=== PATIENT | male | born 1990 | race Caucasian/White ===

== ENCOUNTER 2018-02-24 09:36 | Inpatient (IN) | payer MEDICAID ==
[2018-02-24] VITALS (14 sets, daily range): BP systolic 92–151; BP diastolic 47–68; BMI 22.3
[~2018-02-24] VITALS: Ht 170.2 cm; Wt 59.6 kg
--- NOTE | ~2018-02-24 | OP ---
PATIENT NAME: JUSTA HATCH MEDICAL RECORD: [id number] :89 LOCATION:D.CVI D.CV01 ADMISSION DATE:02/24/18 SURGEON: GUNNAR ROSALES MD DATE OF OPERATION: 03/11/2018 SURGEON: Gunnar Rosales MD ASSISTANTS: 1. Geovanny Hooks MD 2. JYOTI Stephens OPERATION PERFORMED: Excision of infected tricuspid valve anterior and posterior leaflets. PREOPERATIVE DIAGNOSIS: Tricuspid valve endocarditis. POSTOPERATIVE DIAGNOSIS: Tricuspid valve endocarditis. ANESTHESIA: General endotracheal anesthesia. ESTIMATED BLOOD LOSS: Total cardiopulmonary bypass with 1 platelet and 2 FFP. COMPLICATIONS: None. SPECIMENS: 1. Culture directly from pus in the endocarditis of the anterior leaflet. 2. Anterior and posterior leaflet with vegetations for permanent specimen. CONDITION: Stable. DISPOSITION: CV ICU. OPERATIVE FINDINGS: Transesophageal echocardiography confirmed vegetations involving the anterior and posterior leaflet with mitral regurgitation. After separation from cardiopulmonary bypass after excision and preservation of the posterior leaflet, there was [id number] tricuspid regurgitation. OPERATIVE INDICATION: Tricuspid endocarditis with MRSA. OPERATIVE SUMMARY IN DETAIL: The patient was brought to the operating suite. General anesthesia was obtained. The patient was prepped and draped. Median sternotomy incision was made. Subcutaneous tissue was divided by electrocautery. Sternum was divided with a saw. Pericardium was opened. Heparin was given. Superior vena cava was freed. Aorta was cannulated. Superior vena cava cannula was placed through a pursestring in the right atrial appendage. Inferior vena cava cannula was placed through a pursestring low in the right atrium. After activated clotting time was appropriately elevated, the patient was placed in cardiopulmonary bypass. The vena cavae were encircled. Crossclamp was placed. Cardioplegia was given through the catheter in the anterior ascending aorta, and after cardioplegia, the caval tapes were made tight and then the right atrium was opened. The vegetations as noted above were found. The vegetations extended down to the papillary muscle from the anterior leaflet. They were excised and liliane pus in the anterior leaflet vegetation was cultured separately. The septal leaflet was preserved. Thorough irrigation was undertaken. The atriotomy was closed. Caval tapes were removed. The patient OPERATIVE REPORT [id number] JUSTA HATCH resumed spontaneous rhythm. Atrial and ventricular pacing wires were placed. Both pleural cavities were evacuated, and with the patient in sinus rhythm, the patient was weaned from cardiopulmonary bypass and was stable. The patient was decannulated. Aortic cannulation site was oversewn. Protamine was given. Thorough irrigation was undertaken. The patient was stable and pericardial fat was loosely reapproximated. Sternum was closed with wires. Fascia was closed. Subcutaneous tissue was closed. Skin was closed. Dermabond was placed. Needle and sponge counts were correct and the patient was taken to the ICU in stable condition. TRANSINT:[id number] Voice Confirmation ID: [id number] DOCUMENT ID: [id number] GUNNAR ROSALES MD at 0956 CC: LC MIRELES DO, Tanner BRANDON and RAAD MILLS [id number] DICTATION DATE: 03/11/18 1441 GROUND WATER TECHNICIAN: 03/11/18 1502 ADM IN [facility] [address] [id number]
--- NOTE | ~2018-02-24 | EC ---
PATIENT:JUSTA HATCH DATE OF SERVICE: 02/24/18 SEX: M MEDICAL RECORD: [id number] DATE OF : [birth year] LOCATION:[facility] AGE OF PATIENT: 27 ADMISSION DATE: 02/24/18 REFERRING PHYSICIAN: INTERPRETING PHYSICIAN: CHRIS CARTAGENA MD ECHOCARDIOGRAM REPORT ECHO CHARGES 7 ECHO w/CONTRAST Date: 03/03/18 CLINICAL DIAGNOSIS: CONTRAST ECHO TO ASSESS FOR SEPTAL DEFECT ECHOCARDIOGRAPHIC MEASUREMENTS (adult normal given) AC root (d.<3.7cm) 3.0 cm LV Septum d (<1.2 cm> 0.9 cm Valve Excursion 2.3 cm LV Septum (systole) 1.5 cm Left Atria (s.<4.0cm> 3.6 cm LVPW d(<1.2cm) 1.1 cm RV (d.<2.3cm) 2.3 cm LVPW (sytole) 1.9 cm LV diastole(<5.6CM) 5.6 cm MV E-F(>70mm/sec) cm LV systole 3.6 cm LVOT Diameter 1.9 cm MV exc.(>10mm) cm Est.ejection fraction (50-75%) % DOPPLER: LVIT cm/sec A 125 cm/sec E 90.0 cm/sec LA cm/sec RVSP 39.0 mmHg LVOT 111 cm/sec AOP1/2T m/s Asc. Ao 154 cm/sec RVOT 82.0 cm/sec RA cm/sec PA 136 cm/sec AV Gradient Peak 9.5 mmHg AV Mean 4.3 mmHg AV Area 1.7 cm MV Gradient Peak 3.8 mmHg MV Mean 2.0 mmHg MV Area cm COMMENTS: LARGE VEG ON TV Bread Dough Mixer: 2 ADAM JENSEN Set Up And Charger: 4 Dr. Cartagena TAPE# PACS Pericardial Effusion N DATE OF SERVICE: This is a contrast enhanced echocardiogram reportedly looking for evidence of a ventricular septal defect or an atrial septal defect. CONCLUSION: The patient has a dilated right ventricle. There is a large tricuspid valve vegetation. There does not appear to be any ventricular defect or atrial septal defect. TRANSINT:[id number] Voice Confirmation ID: [id number] DOCUMENT ID: [id number] ECHOCARDIOGRAM REPORT [id number] JUSTA HATCH CHRIS CARTAGENA MD at 0748 CC: [id number] DICTATION DATE: 03/03/18 1527 STATION GATEMAN: 03/03/18 1628 ADM IN [facility] [address] [place] [address]
--- NOTE | ~2018-02-24 | EC ---
PATIENT:JUSTA HATCH DATE OF SERVICE: 02/24/18 SEX: M MEDICAL RECORD: [id number] DATE OF : [birth year] LOCATION:[facility] AGE OF PATIENT: 27 ADMISSION DATE: 02/24/18 REFERRING PHYSICIAN: INTERPRETING PHYSICIAN: CHRIS CARTAGENA MD ECHOCARDIOGRAM REPORT ECHO CHARGES 5 ECHO LIMITED Date: 03/11/18 CLINICAL DIAGNOSIS: REASESS VEGATATION ON TRICUSPID VALVE ECHOCARDIOGRAPHIC MEASUREMENTS (adult normal given) AC root (d.<3.7cm) 3.0 cm LV Septum d (<1.2 cm> 0.9 cm Valve Excursion 2.3 cm LV Septum (systole) 1.5 cm Left Atria (s.<4.0cm> 3.6 cm LVPW d(<1.2cm) 1.1 cm RV (d.<2.3cm) 2.3 cm LVPW (sytole) 1.9 cm LV diastole(<5.6CM) 5.6 cm MV E-F(>70mm/sec) cm LV systole 3.6 cm LVOT Diameter 1.9 cm MV exc.(>10mm) cm Est.ejection fraction (50-75%) % DOPPLER: LVIT cm/sec A 125 cm/sec E 90.0 cm/sec LA cm/sec RVSP 39.0 mmHg LVOT 111 cm/sec AOP1/2T m/s Asc. Ao 154 cm/sec RVOT 82.0 cm/sec RA cm/sec PA 136 cm/sec AV Gradient Peak 9.5 mmHg AV Mean 4.3 mmHg AV Area 1.7 cm MV Gradient Peak 3.8 mmHg MV Mean 2.0 mmHg MV Area cm COMMENTS: ROSALES PATIENT Organizational Development Consultant: 2 ADAM JENSEN Latcher: 3 Dr. Rodriguez TAPE# PACS Pericardial Effusion N DATE OF SERVICE: 03/14/2018 PROCEDURE: Intraoperative transesophageal echocardiogram. FINDINGS: Echocardiogram demonstrated a large vegetation on the tricuspid valve measuring 2.4 cm, ejection fraction 65%. The patient has a dilated right ventricular heart structure. The area of the vegetation is 1.3 cm-squared and had severe tricuspid regurgitation associated with it. TRANSINT:[id number] Voice Confirmation ID: [id number] DOCUMENT ID: [id number] ECHOCARDIOGRAM REPORT [id number] JUSTA HATCH CHRIS CARTAGENA MD at 0738 CC: [id number] DICTATION DATE: 03/14/18907 SENIOR TEST ENGINEER: 03/14/18914 ADM IN [place] [id number] [place] [id number]
--- NOTE | ~2018-02-24 | CN ---
PATIENT NAME:JUSTA HATCH MEDICAL RECORD: [id number] : [birth year] LOCATION:[facility]2311 ADMIT DATE: 02/24/18 ACCOUNT: [id number] CONSULTING PHYSICIAN: CYRUS RINCON MD REFERRING PHYSICIAN: LC MIRELES DO DATE OF CONSULTATION: 02/24/2018 CARDIOLOGY CONSULTATION DIAGNOSES: 1. Sinus tachycardia. 2. Pneumonia. 3. Hyponatremia. 4. Hypokalemia. HISTORY OF PRESENT ILLNESS: This is a gentleman who presents with general malaise, shortness of breath, found to have multilobar pneumonia, is also found to have a sinus tachycardia initially at 120, now at 160. PHYSICAL EXAMINATION: GENERAL APPEARANCE: Well-nourished, well-developed, appears stated age. Level of distress, comfortable. PSYCHIATRIC: Mental status, alert, normal affect. Orientation, oriented to time, place and person. EYES: Lids and conjunctiva, noninjected. No discharge, no pallor. ENT: Lips, teeth, gums, normal dentition. Oropharynx, no cyanosis, no pallor. NECK: Carotid arteries, bilateral normal upstroke, no bruits, no thrills. JUGULAR VEINS: No jugular venous pressure or distention. CERVICAL LYMPH NODES: Nontender, nonenlarged. THYROID: Not enlarged. Nontender. No nodules. LUNGS: Respiratory effort, unlabored. CHEST: Normal curvature. No thoracic deformity. No chest wall tenderness. Percussion, resonant. Auscultation, clear. No wheezes, no rales, no rhonchi. CARDIOVASCULAR: Precordial exam, nondisplaced. No heaves or pericardial thrills. Rate and rhythm, regular. Heart sounds, normal S1, normal S2. No S3, no gallop, no rub. Systolic murmur, not heard. Diastolic murmur, not heard. EXTREMITIES: No cyanosis, no edema. Peripheral pulses, full and equal in all extremities, except as noted. No bruits appreciated. ABDOMEN: Soft, nondistended. Normal aorta. No bruit. Nontender. No masses. Liver, nontender, no hepatomegaly. Spleen, nontender, no splenomegaly. MUSCULOSKELETAL: No joint tenderness. No joint swelling. No erythema. NEUROLOGICAL: Normal gait, normal strength, normal tone. SKIN: Warm and dry. REVIEW OF SYSTEMS: The patient reports easy bruising but reports no swollen glands. The patient reports no fever, no night sweats, no significant weight gain, no significant weight loss. No significant exercise tolerance. The patient reports no dry eyes, no irritation, no vision change. Patient reports no difficulty hearing and no ear pain. Patient reports no frequent nose bleeds or nose and sinus problems. Patient reports on arm pain on exertion. No shortness of breath while lying down. No history of heart murmur. Patient reports no cough, no wheezing or coughing up blood. Patient reports no abdominal pain, no vomiting. Normal appetite. No diarrhea and not vomiting blood. No nausea and no constipation. Patient reports no incontinence. No difficulty urinating. No hematuria. No increased frequency. Patient reports CONSULT REPORT [id number] JUSTA HATCH no muscle aches. No weakness, no arthralgias, no back pain. No swelling of the extremities. Patient reports no abnormal mole, no jaundice, no rashes. Reports no loss of consciousness. No weakness and no numbness. No seizures, dizziness, or headaches. The patient reports no depression, no sleep disturbance, feeling safe in a relationship and no alcohol abuse. Patient reports on fatigue. Reports no runny nose or sinus pressure. No itching, no hives, and no frequent sneezing. OVERALL IMPRESSION: Sinus tachycardia. This will respond to Lopressor. Currently, his systolic blood pressure is in the 120 range. We will give 10 mg IV Lopressor. We will get an echocardiogram to make sure he does not have concomitant endocarditis as well. Other than that, no other cardiac workup or treatment is necessary. TRANSINT:[id number] Voice Confirmation ID: [id number] DOCUMENT ID: [id number] CYRUS RINCON MD at 1843 CC: [id number] DICTATION DATE: 02/24/18 170 PRINCIPLE SOFTWARE ENGINEER: 02/24/181941 ADM IN [facility] [address] [place] [address]
--- NOTE | ~2018-02-24 | EC ---
PATIENT:JUSTA HATCH DATE OF SERVICE: 02/24/18 SEX: M MEDICAL RECORD: [id number] DATE OF : [birth year] LOC[facility] AGE OF PATIENT: 27 ADMISSION DATE: 02/24/18 REFERRING PHYSICIAN: INTERPRETING PHYSICIAN: RAAD MILLS MD ECHOCARDIOGRAM REPORT ECHO CHARGES 5 ECHO LIMITED Date: 03/08/18 CLINICAL DIAGNOSIS: REASESS VEGATATION ON TRICUSPID VALVE ECHOCARDIOGRAPHIC MEASUREMENTS (adult normal given) AC root (d.<3.7cm) 3.0 cm LV Septum d (<1.2 cm> 0.9 cm Valve Excursion 2.3 cm LV Septum (systole) 1.5 cm Left Atria (s.<4.0cm> 3.6 cm LVPW d(<1.2cm) 1.1 cm RV (d.<2.3cm) 2.3 cm LVPW (sytole) 1.9 cm LV diastole(<5.6CM) 5.6 cm MV E-F(>70mm/sec) cm LV systole 3.6 cm LVOT Diameter 1.9 cm MV exc.(>10mm) cm Est.ejection fraction (50-75%) % DOPPLER: LVIT cm/sec A 125 cm/sec E 90.0 cm/sec LA cm/sec RVSP 39.0 mmHg LVOT 111 cm/sec AOP1/2T m/s Asc. Ao 154 cm/sec RVOT 82.0 cm/sec RA cm/sec PA 136 cm/sec AV Gradient Peak 9.5 mmHg AV Mean 4.3 mmHg AV Area 1.7 cm MV Gradient Peak 3.8 mmHg MV Mean 2.0 mmHg MV Area cm COMMENTS: LARGE VEG ON TV Horizontal Drill Operator: 2 ADAM JENSEN Rest Room Maid: 3 Dr. Rodriguez TAPE# PACS Pericardial Effusion N DATE OF SERVICE: This is a limited study, 2-D. No LVH. LV internal dimensions are normal. LV is hyperdynamic. EF is greater than 60%. Aortic valve is tricuspid with adequate valve excursion. Left atrium grossly appears normal. Mitral valve shows no prolapse. Trivial MR. Right-sided chamber is normal. Trivial TR. TRANSINT:[id number] Voice Confirmation ID: [id number] DOCUMENT ID: [id number] ECHOCARDIOGRAM REPORT [id number] HATCHJUSTA DAVIS GREGORY A MD at 0843 CC: [id number] DICTATION DATE: 03/08/18 1238 DICE TABLE PERSON: 03/08/18 1304 ADM IN [facility] [address] [id number]
--- NOTE | ~2018-02-24 | EC ---
PATIENT:JUSTA HATCH DATE OF SERVICE: 02/24/18 SEX: M MEDICAL RECORD: [id number] DATE OF : [birth year] LOCATION:[facility] AGE OF PATIENT: 27 ADMISSION DATE: 02/24/18 REFERRING PHYSICIAN: INTERPRETING PHYSICIAN: CYRUS PHELAN MD ECHOCARDIOGRAM REPORT ECHO CHARGES 4 ECHO COMPLETE Date: 02/25 CLINICAL DIAGNOSIS: TACHYCARDIA - R/O ENDOCARDITIS ECHOCARDIOGRAPHIC MEASUREMENTS (adult normal given) AC root (d.<3.7cm) 3.0 cm LV Septum d (<1.2 cm> 0.9 cm Valve Excursion 2.3 cm LV Septum (systole) 1.5 cm Left Atria (s.<4.0cm> 3.6 cm LVPW d(<1.2cm) 1.1 cm RV (d.<2.3cm) 2.3 cm LVPW (sytole) 1.9 cm LV diastole(<5.6CM) 5.6 cm MV E-F(>70mm/sec) cm LV systole 3.6 cm LVOT Diameter 1.9 cm MV exc.(>10mm) cm Est.ejection fraction (50-75%) % DOPPLER: LVIT cm/sec A 125 cm/sec E 90.0 cm/sec LA cm/sec RVSP 39.0 mmHg LVOT 111 cm/sec AOP1/2T m/s Asc. Ao 154 cm/sec RVOT 82.0 cm/sec RA cm/sec PA 136 cm/sec AV Gradient Peak 9.5 mmHg AV Mean 4.3 mmHg AV Area 1.7 cm MV Gradient Peak 3.8 mmHg MV Mean 2.0 mmHg MV Area cm COMMENTS: Feed Project Engineer: Georgina SARKAROE Certified Court/Medical Interpreter: 1 Dr. Phelan TAPE# PACS Pericardial Effusion N DATE OF SERVICE: 02/25/2018 PROCEDURE: Echocardiogram. FINDINGS: 1. Left ventricular chamber size is within normal limits. Left ventricular systolic function is normal. Overall ejection fraction estimated at 55%. 2. Left atrium, right atrium, and right ventricle chamber sizes are within normal limits. 3. Valvular structures: There is a large vegetation compatible with ECHOCARDIOGRAM REPORT [id number] JUSTA HATCH endocarditis on the tricuspid valve. The remaining valvular structures have normal structure and motion. 4. Doppler interrogation reveals only trace mitral regurgitation, trace tricuspid regurgitation, no other valvular insufficiency or stenosis. Pulmonary systolic pressure is normal estimated 39 mmHg. 5. No evidence of pericardial effusion or left ventricular thrombus. TRANSINT:[id number] Voice Confirmation ID: [id number] DOCUMENT ID: [id number] CYRUS PHELAN MD at 1843 CC: LC MIRELES DO [id number] DICTATION DATE: 02/25/18 1206 HOT PATCHER: 02/25/18 1211 ADM IN [id number] [place] [address]
--- NOTE | ~2018-02-24 | EC ---
PATIENT:JUSTA HATCH DATE OF SERVICE: 02/24/18 SEX: M MEDICAL RECORD: [id number] DATE OF : 91 LOCATION:[place] [address] AGE OF PATIENT: 27 ADMISSION DATE: 02/24/18 REFERRING PHYSICIAN: INTERPRETING PHYSICIAN: RAAD MILLS MD ECHOCARDIOGRAM REPORT ECHO CHARGES 5 ECHO LIMITED Date: 03/08/18 CLINICAL DIAGNOSIS: REASESS VEGATATION ON TRICUSPID VALVE ECHOCARDIOGRAPHIC MEASUREMENTS (adult normal given) AC root (d.<3.7cm) 3.0 cm LV Septum d (<1.2 cm> 0.9 cm Valve Excursion 2.3 cm LV Septum (systole) 1.5 cm Left Atria (s.<4.0cm> 3.6 cm LVPW d(<1.2cm) 1.1 cm RV (d.<2.3cm) 2.3 cm LVPW (sytole) 1.9 cm LV diastole(<5.6CM) 5.6 cm MV E-F(>70mm/sec) cm LV systole 3.6 cm LVOT Diameter 1.9 cm MV exc.(>10mm) cm Est.ejection fraction (50-75%) % DOPPLER: LVIT cm/sec A 125 cm/sec E 90.0 cm/sec LA cm/sec RVSP 39.0 mmHg LVOT 111 cm/sec AOP1/2T m/s Asc. Ao 154 cm/sec RVOT 82.0 cm/sec RA cm/sec PA 136 cm/sec AV Gradient Peak 9.5 mmHg AV Mean 4.3 mmHg AV Area 1.7 cm MV Gradient Peak 3.8 mmHg MV Mean 2.0 mmHg MV Area cm COMMENTS: LARGE VEG ON TV Chemical Plant Manager: 2 ADAM JENSEN Ore Buyer: 3 Dr. Rodriguez TAPE# PACS Pericardial Effusion N DATE OF SERVICE: Transesophageal Note DESCRIPTION OF PROCEDURE: After general sedation via TIVA anesthesia, transesophageal Omniplane probe WAS placed in the distal esophagus and proximal stomach without difficulty. FINDINGS: As follows: No LVH. LV internal dimension is normal. Wall motion is normal. EF is hyperdynamic. EF 60% or better. Aortic valve is tricuspid ECHOCARDIOGRAM REPORT [id number] JUSTA HATCH with good valve excursion. No evidence of vegetation. Left atrium appears with normal dimensions. Left atrial appendage is well visualized without evidence of thrombus and good contractility. Mitral valve is well visualized with no evidence of vegetation, normal-appearing valve with trivial MR. Right-sided chambers: Right atrium is obviously dilated. RV internal dimensions appear normal with normal contractility. Huge vegetation is seen involving both the entire tricuspid valve apparatus with severe TR with color flow imaging. At the end of the procedure, the Omniplane probe was turned posteriorly. This showed no atherosclerotic debris in the descending aorta. TRANSINT:[id number] Voice Confirmation ID: [id number] DOCUMENT ID: [id number] RAAD MILLS MD at 0843 CC: [id number] DICTATION DATE: 03/08/18 1229 COAT FITTER: 03/08/18 1248 ADM IN [address] [id number] [place] [address]
[2018-02-24 10:40] LABS: UDS - AMPHET POSITIVE QUAL (NEGATIVE); UDS - BARB NEGATIVE QUAL (NEGATIVE); UDS - BENZO NEGATIVE QUAL (NEGATIVE); UDS - COCAINE NEGATIVE QUAL (NEGATIVE); UDS - OPIATE POSITIVE QUAL (NEGATIVE); UDS - PCP NEGATIVE QUAL (NEGATIVE); UDS - THC NEGATIVE QUAL (NEGATIVE)
[2018-02-24 10:42] LABS: BASOPHILS 0.2 % (0-2); EOSINOPHILS 0 % (0-7); HEMATOCRIT 39.4 % (42.0-54.0); HEMOGLOBIN 14.5 g/dL (13.5-17.5); IMMATURE GRANULOCYTES 6.6 % (0-5); MCH 31.5 pg (26.0-34.0); MCHC 36.8 g/dL (31.0-37.0); MCV 85.5 fL (80.0-100.0); MEAN PLATELET VOLUME 12.3 fL (7.4-10.4); MONOCYTES 7.9 % (2-11); NEUTROPHILS 80.3 % (40-80); RBC 4.61 10x6/uL (4.20-6.10); WBC 12.6 10x3/uL (4.8-10.8)
[2018-02-24 10:50] LABS: PLATELET COUNT 41 10x3/uL (130-400)
[2018-02-24 10:55] LABS: ALBUMIN 2.6 g/dL (3.4-5.0); ALKALINE PHOSPHATASE 153 U/L (46-116); ALT (SGPT) 108 U/L (10-68); BILIRUBIN - TOTAL 6.83 mg/dL (0.2-1.3); CALC OSMOLALITY 255 mosm/kg (275-300); CALCIUM 8.4 mg/dL (8.5-10.1); CARBON DIOXIDE 26.8 mmol/L (21.0-32.0); CHLORIDE - SERUM 91 mmol/L (98-107); CREATININE - SERUM 1.1 mg/dL (0.6-1.3); GLUCOSE 108 mg/dL (74-106); POTASSIUM - SERUM 3.3 mmol/L (3.5-5.1); SODIUM 127 mmol/L (136-145); UREA NITROGEN 12 mg/dL (7-18); eGFR NON AFRICAN AMERICAN 86 mL/min (90-120)
[2018-02-24 11:03] LABS: APPEARANCE CLOUDY (CLEAR); BILIRUBIN 3+ (NEGATIVE); COLOR AMBER (YELLOW); GLUCOSE NEGATIVE (NEGATIVE); KETONE NEGATIVE (NEGATIVE); NITRITE NEGATIVE (NEGATIVE); PROTEIN 2+ mg/dL (NEGATIVE); SPECIFIC GRAVITY 1.015 (1.005-1.020); WHITE CELLS - URINE 0-5 /hpf (0-5)
[2018-02-24 11:04] LABS: BACTERIA MODERATE /hpf (NONE SEEN); EPITHELIAL CELLS 0-5 /hpf (0-5); MUCUS >1+ /lpf (NONE SEEN); RED CELLS - URINE OCC /hpf (0-5)
[2018-02-24 11:10] LABS: CKMB 0.8 U/L (0.0-3.6); CREATINE KINASE 63 UL (21-232); TROPONIN-I < 0.017 ng/mL (0.000-0.060)
[2018-02-24 11:12] LABS: PLATELET ESTIMATE DECREASED
[2018-02-24 18:55] LABS: APTT 31.3 SECONDS (22.8-39.4); INR 1.4 (0.85-1.17); PROTIME 16.7 SECONDS (11.6-15.0)
[2018-02-25] VITALS (20 sets, daily range): BP systolic 93–140; BP diastolic 53–93; Ht 170.2 cm; Wt 59.6 kg
[2018-02-25 03:08] LABS: BASOPHILS 0.1 % (0-2); EOSINOPHILS 0.2 % (0-7); HEMATOCRIT 36.2 % (42.0-54.0); HEMOGLOBIN 12.9 g/dL (13.5-17.5); IMMATURE GRANULOCYTES 10.4 % (0-5); LYMPHOCYTES 4.5 % (15-50); MCH 30.6 pg (26.0-34.0); MCHC 35.6 g/dL (31.0-37.0); MCV 85.8 fL (80.0-100.0); MONOCYTES 6.8 % (2-11); RBC 4.22 10x6/uL (4.20-6.10); RDW 13.2 % (11.5-14.5); WBC 13.6 10x3/uL (4.8-10.8)
[2018-02-25 03:10] LABS: PLATELET COUNT 37 10x3/uL (130-400)
[2018-02-25 03:15] LABS: INR 1.41 (0.85-1.17); PROTIME 16.8 SECONDS (11.6-15.0)
[2018-02-25 03:16] LABS: APTT 33.2 SECONDS (22.8-39.4)
[2018-02-25 03:29] LABS: ALKALINE PHOSPHATASE 119 U/L (46-116); BILIRUBIN - TOTAL 5.22 mg/dL (0.2-1.3); CALCIUM 7.6 mg/dL (8.5-10.1); CHLORIDE - SERUM 98 mmol/L (98-107); CHOL - HDL RATIO 8.1 ratio (2.3-4.9); CHOLESTEROL, TOTAL 57 mg/dL (0-200); CREATININE - SERUM 0.9 mg/dL (0.6-1.3); GLUCOSE 110 mg/dL (74-106); HDL CHOLESTEROL 7 mg/dL (32-96); LDL CHOLESTEROL 18 mg/dL (0-100); LDL-HDL RATIO 2.6 ratio (1.5-3.5); POTASSIUM - SERUM 3.5 mmol/L (3.5-5.1); PRE-ALBUMIN 2.7 mg/dL (18.0-35.7); PROTEIN - SERUM 5.8 g/dL (6.4-8.2); SODIUM 133 mmol/L (136-145); THYROID STIMULATING HORMONE 0.75 uIU/mL (0.36-3.74); TRIGLYCERIDE 161 mg/dL (30-200); eGFR NON AFRICAN AMERICAN > 90 mL/min (90-120)
[2018-02-25 03:30] LABS: ALT (SGPT) 68 U/L (10-68); CALC OSMOLALITY 264 mosm/kg (275-300); LDH 182 U/L (85-227); UREA NITROGEN 8 mg/dL (7-18)
[2018-02-26] VITALS (23 sets, daily range): BP systolic 86–127; BP diastolic 41–116
[2018-02-26 08:18] LABS: HEPATITIS C ANTIBODY 0.1 (0.0-0.9)
[2018-02-26 10:02] LABS: HEMATOCRIT 31.1 % (42.0-54.0); HEMOGLOBIN 11.3 g/dL (13.5-17.5); MCH 30.6 pg (26.0-34.0); MCHC 36.3 g/dL (31.0-37.0); MCV 84.3 fL (80.0-100.0); MEAN PLATELET VOLUME 12.1 fL (7.4-10.4); PLATELET COUNT 52 10x3/uL (130-400); RBC 3.69 10x6/uL (4.20-6.10); RDW 13.5 % (11.5-14.5); WBC 22.2 10x3/uL (4.8-10.8)
[2018-02-26 10:04] LABS: ALBUMIN 1.5 g/dL (3.4-5.0); ALKALINE PHOSPHATASE 166 U/L (46-116); BILIRUBIN - TOTAL 6.99 mg/dL (0.2-1.3); CALCIUM 7.3 mg/dL (8.5-10.1); CARBON DIOXIDE 22.9 mmol/L (21.0-32.0); CHLORIDE - SERUM 99 mmol/L (98-107); GLUCOSE 95 mg/dL (74-106); POTASSIUM - SERUM 3.9 mmol/L (3.5-5.1); PROTEIN - SERUM 4.6 g/dL (6.4-8.2); SODIUM 131 mmol/L (136-145)
[2018-02-26 10:05] LABS: ALT (SGPT) 48 U/L (10-68); CALC OSMOLALITY 261 mosm/kg (275-300); CREATININE - SERUM 0.6 mg/dL (0.6-1.3); UREA NITROGEN 11 mg/dL (7-18); eGFR NON AFRICAN AMERICAN > 90 mL/min (90-120)
[2018-02-26 10:25] LABS: BASOPHILS 1 % (0-2); LYMPHOCYTES 2 % (15-50); MONOCYTES 9 % (2-11); NEUTROPHILS 86 % (40-80); PLATELET ESTIMATE DECREASED; TOXIC GRANULATION 1+
[2018-02-26 18:27] LABS: ALBUMIN 1.5 g/dL (3.4-5.0); ALKALINE PHOSPHATASE 164 U/L (46-116); ALT (SGPT) 52 U/L (10-68); BILIRUBIN - DIRECT 6.02 mg/dL (0.00-0.30); BILIRUBIN - INDIRECT 0.89 mg/dL (0.00-1.00); BILIRUBIN - TOTAL 6.91 mg/dL (0.2-1.3); CALC OSMOLALITY 263 mosm/kg (275-300); CALCIUM 7.2 mg/dL (8.5-10.1); CARBON DIOXIDE 26.2 mmol/L (21.0-32.0); CHLORIDE - SERUM 100 mmol/L (98-107); GLUCOSE 128 mg/dL (74-106); SODIUM 131 mmol/L (136-145); UREA NITROGEN 11 mg/dL (7-18)
[2018-02-26 18:31] LABS: CREATININE - SERUM 0.8 mg/dL (0.6-1.3); LDH 229 U/L (85-227); POTASSIUM - SERUM 3.3 mmol/L (3.5-5.1); eGFR NON AFRICAN AMERICAN > 90 mL/min (90-120)
[2018-02-27] VITALS (24 sets, daily range): BP systolic 84–130; BP diastolic 41–90
[2018-02-27 03:07] LABS: EOSINOPHILS 0.4 % (0-7); LYMPHOCYTES 12.2 % (15-50); MCH 30.5 pg (26.0-34.0); MCHC 35.3 g/dL (31.0-37.0); MEAN PLATELET VOLUME 12.2 fL (7.4-10.4); MONOCYTES 9.2 % (2-11); PLATELET COUNT 52 10x3/uL (130-400); RBC 3.94 10x6/uL (4.20-6.10); RDW 13.7 % (11.5-14.5); WBC 16.9 10x3/uL (4.8-10.8)
[2018-02-27 03:09] LABS: MCV 86.3 fL (80.0-100.0)
[2018-02-27 03:12] LABS: BASOPHILS 0.1 % (0-2)
[2018-02-27 03:20] LABS: APTT 28.3 SECONDS (22.8-39.4); INR 1.25 (0.85-1.17); PROTIME 15.3 SECONDS (11.6-15.0)
[2018-02-27 03:25] LABS: ALBUMIN 1.3 g/dL (3.4-5.0); ALKALINE PHOSPHATASE 152 U/L (46-116); ALT (SGPT) 59 U/L (10-68); BILIRUBIN - TOTAL 7.33 mg/dL (0.2-1.3); CALC OSMOLALITY 265 mosm/kg (275-300); CALCIUM 7.4 mg/dL (8.5-10.1); CARBON DIOXIDE 28.3 mmol/L (21.0-32.0); CHLORIDE - SERUM 102 mmol/L (98-107); CREATININE - SERUM 0.7 mg/dL (0.6-1.3); GLUCOSE 107 mg/dL (74-106); PHOSPHOROUS 2.4 mg/dL (2.5-4.9); POTASSIUM - SERUM 3.9 mmol/L (3.5-5.1); PROTEIN - SERUM 4.8 g/dL (6.4-8.2); SODIUM 133 mmol/L (136-145); UREA NITROGEN 13 mg/dL (7-18); eGFR NON AFRICAN AMERICAN > 90 mL/min (90-120)
[2018-02-27 20:06] LABS: ADAMTS13 ACTIVITY 35.3 % (>66.8)
[2018-02-28] VITALS (24 sets, daily range): BP systolic 90–133; BP diastolic 42–112
[2018-02-28 03:40] LABS: BASOPHILS 0.4 % (0-2); EOSINOPHILS 0.1 % (0-7); HEMATOCRIT 30.8 % (42.0-54.0); HEMOGLOBIN 10.8 g/dL (13.5-17.5); IMMATURE GRANULOCYTES 1.7 % (0-5); LYMPHOCYTES 8.5 % (15-50); MCH 30.3 pg (26.0-34.0); MCHC 35.1 g/dL (31.0-37.0); MCV 86.3 fL (80.0-100.0); MEAN PLATELET VOLUME 11.9 fL (7.4-10.4); MONOCYTES 8.7 % (2-11); NEUTROPHILS 80.6 % (40-80); PLATELET COUNT 109 10x3/uL (130-400); RBC 3.57 10x6/uL (4.20-6.10); RDW 14.3 % (11.5-14.5); WBC 25.2 10x3/uL (4.8-10.8)
[2018-02-28 03:53] LABS: ALBUMIN 1.2 g/dL (3.4-5.0); ALKALINE PHOSPHATASE 163 U/L (46-116); ALT (SGPT) 68 U/L (10-68); BILIRUBIN - TOTAL 4.86 mg/dL (0.2-1.3); CALCIUM 7.3 mg/dL (8.5-10.1); CARBON DIOXIDE 28.9 mmol/L (21.0-32.0); CHLORIDE - SERUM 105 mmol/L (98-107); CREATININE - SERUM 0.8 mg/dL (0.6-1.3); GLUCOSE 114 mg/dL (74-106); MAGNESIUM - SERUM 1.9 mg/dL (1.8-2.4); PROTEIN - SERUM 4.8 g/dL (6.4-8.2); SODIUM 138 mmol/L (136-145); eGFR NON AFRICAN AMERICAN > 90 mL/min (90-120)
[2018-02-28 03:54] LABS: CALC OSMOLALITY 274 mosm/kg (275-300); PHOSPHOROUS 3.4 mg/dL (2.5-4.9); POTASSIUM - SERUM 3.3 mmol/L (3.5-5.1); UREA NITROGEN 8 mg/dL (7-18)
[2018-03-01] VITALS (23 sets, daily range): BP systolic 86–132; BP diastolic 48–89
[2018-03-01 03:12] LABS: BASOPHILS 0.1 % (0-2); EOSINOPHILS 0.1 % (0-7); HEMATOCRIT 28.4 % (42.0-54.0); HEMOGLOBIN 9.9 g/dL (13.5-17.5); IMMATURE GRANULOCYTES 1.5 % (0-5); LYMPHOCYTES 6.4 % (15-50); MCHC 34.9 g/dL (31.0-37.0); MCV 86.1 fL (80.0-100.0); MEAN PLATELET VOLUME 11.1 fL (7.4-10.4); MONOCYTES 8.7 % (2-11); NEUTROPHILS 83.2 % (40-80); RDW 14.3 % (11.5-14.5)
[2018-03-01 03:13] LABS: PLATELET COUNT 164 10x3/uL (130-400); WBC 17.9 10x3/uL (4.8-10.8)
[2018-03-01 03:27] LABS: ALBUMIN 1.2 g/dL (3.4-5.0); ALKALINE PHOSPHATASE 141 U/L (46-116); ALT (SGPT) 54 U/L (10-68); BILIRUBIN - TOTAL 2.87 mg/dL (0.2-1.3); CALCIUM 7.2 mg/dL (8.5-10.1); CHLORIDE - SERUM 106 mmol/L (98-107); CREATININE - SERUM 0.7 mg/dL (0.6-1.3); GLUCOSE 129 mg/dL (74-106); PROTEIN - SERUM 4.9 g/dL (6.4-8.2); SODIUM 138 mmol/L (136-145); eGFR NON AFRICAN AMERICAN > 90 mL/min (90-120)
[2018-03-01 03:29] LABS: C-REACTIVE PROTEIN 19.2 mg/dL (0.0-0.9); CALC OSMOLALITY 274 mosm/kg (275-300); POTASSIUM - SERUM 4.1 mmol/L (3.5-5.1); UREA NITROGEN 5 mg/dL (7-18)
[2018-03-01 04:14] LABS: ERYTHROCYTE SEDIMENTATION RATE 30 mm/hr (0-15)
[2018-03-01 07:08] LABS: EBV - EARLY ANTIGEN AB IGG 17.1 U/mL (0.0-8.9); EBV VIRAL CAPSID AB IGM <36.0 U/mL (0.0-35.9)
[2018-03-01 15:20] LABS: EHRLICHIA CHAFF IGG Negative (Neg:<1:64); EHRLICHIA CHAFF IGM Negative (Neg:<1:20); HGE IGG TITER Negative (Neg:<1:64); HGE IGM TITER Negative (Neg:<1:20)
[2018-03-02] VITALS (23 sets, daily range): BP systolic 104–142; BP diastolic 56–94
[2018-03-02 07:08] LABS: BASOPHILS 0.1 % (0-2); EOSINOPHILS 0.2 % (0-7); HEMATOCRIT 29.1 % (42.0-54.0); IMMATURE GRANULOCYTES 1.7 % (0-5); LYMPHOCYTES 11.9 % (15-50); MCH 29.9 pg (26.0-34.0); MCHC 34.4 g/dL (31.0-37.0); MCV 87.1 fL (80.0-100.0); MEAN PLATELET VOLUME 10.5 fL (7.4-10.4); MONOCYTES 9.5 % (2-11); NEUTROPHILS 76.6 % (40-80); RBC 3.34 10x6/uL (4.20-6.10); RDW 14.9 % (11.5-14.5)
[2018-03-02 07:14] LABS: PLATELET COUNT 228 10x3/uL (130-400); WBC 13.3 10x3/uL (4.8-10.8)
[2018-03-02 07:21] LABS: ALBUMIN 1.3 g/dL (3.4-5.0); ALKALINE PHOSPHATASE 134 U/L (46-116); ALT (SGPT) 62 U/L (10-68); BILIRUBIN - TOTAL 1.97 mg/dL (0.2-1.3); CALC OSMOLALITY 267 mosm/kg (275-300); CALCIUM 7.2 mg/dL (8.5-10.1); CHLORIDE - SERUM 104 mmol/L (98-107); CREATININE - SERUM 0.7 mg/dL (0.6-1.3); GLUCOSE 117 mg/dL (74-106); POTASSIUM - SERUM 3.7 mmol/L (3.5-5.1); SODIUM 135 mmol/L (136-145); UREA NITROGEN 4 mg/dL (7-18); eGFR NON AFRICAN AMERICAN > 90 mL/min (90-120)
[2018-03-02 07:23] LABS: PROTEIN - SERUM 6.2 g/dL (6.4-8.2)
[2018-03-02 14:23] LABS: RMSF IGM 1.36 index (0.00-0.89); RMSF IGM 1.42 index (0.00-0.89)
[2018-03-03] VITALS (24 sets, daily range): BP systolic 98–127; BP diastolic 53–91
[2018-03-03 10:34] LABS: BASOPHILS 0.1 % (0-2); EOSINOPHILS 0 % (0-7); HEMATOCRIT 32.2 % (42.0-54.0); HEMOGLOBIN 10.6 g/dL (13.5-17.5); IMMATURE GRANULOCYTES 1.9 % (0-5); LYMPHOCYTES 10.7 % (15-50); MCH 29.7 pg (26.0-34.0); MCHC 32.9 g/dL (31.0-37.0); MEAN PLATELET VOLUME 11.2 fL (7.4-10.4); MONOCYTES 8.5 % (2-11); NEUTROPHILS 78.8 % (40-80); PLATELET COUNT 265 10x3/uL (130-400); RBC 3.57 10x6/uL (4.20-6.10); RDW 15.3 % (11.5-14.5); WBC 15.1 10x3/uL (4.8-10.8)
[2018-03-03 10:39] LABS: MCV 90.2 fL (80.0-100.0)
[2018-03-03 10:45] LABS: ALBUMIN 1.4 g/dL (3.4-5.0); ALKALINE PHOSPHATASE 141 U/L (46-116); BILIRUBIN - TOTAL 1.97 mg/dL (0.2-1.3); CALC OSMOLALITY 263 mosm/kg (275-300); CALCIUM 7.5 mg/dL (8.5-10.1); CARBON DIOXIDE 23.5 mmol/L (21.0-32.0); CHLORIDE - SERUM 101 mmol/L (98-107); CREATININE - SERUM 0.8 mg/dL (0.6-1.3); GLUCOSE 137 mg/dL (74-106); MAGNESIUM - SERUM 2.2 mg/dL (1.8-2.4); PROTEIN - SERUM 7.2 g/dL (6.4-8.2); SODIUM 132 mmol/L (136-145); UREA NITROGEN 5 mg/dL (7-18); eGFR NON AFRICAN AMERICAN > 90 mL/min (90-120)
[2018-03-03 10:46] LABS: ALT (SGPT) 117 U/L (10-68)
[2018-03-04] VITALS (24 sets, daily range): BP systolic 82–122; BP diastolic 18–99
[2018-03-04 05:11] LABS: HEMATOCRIT 30.5 % (42.0-54.0); HEMOGLOBIN 10.4 g/dL (13.5-17.5); MCH 30.1 pg (26.0-34.0); MCHC 34.1 g/dL (31.0-37.0); MEAN PLATELET VOLUME 9.4 fL (7.4-10.4); NEUTROPHILS 77.8 % (40-80); PLATELET COUNT 224 10x3/uL (130-400); RBC 3.46 10x6/uL (4.20-6.10); RDW 14.6 % (11.5-14.5); WBC 13.9 10x3/uL (4.8-10.8)
[2018-03-04 05:12] LABS: CALC OSMOLALITY 268 mosm/kg (275-300); CALCIUM 7.5 mg/dL (8.5-10.1); CARBON DIOXIDE 27.3 mmol/L (21.0-32.0); CHLORIDE - SERUM 103 mmol/L (98-107); CREATININE - SERUM 0.7 mg/dL (0.6-1.3); GLUCOSE 119 mg/dL (74-106); MCV 88.2 fL (80.0-100.0); SODIUM 135 mmol/L (136-145); eGFR NON AFRICAN AMERICAN > 90 mL/min (90-120)
[2018-03-04 05:15] LABS: UREA NITROGEN 8 mg/dL (7-18)
[2018-03-05] VITALS (23 sets, daily range): BP systolic 72–132; BP diastolic 42–109
[2018-03-05 05:16] LABS: BASOPHILS 0.1 % (0-2); EOSINOPHILS 0 % (0-7); HEMATOCRIT 33.3 % (42.0-54.0); HEMOGLOBIN 11.1 g/dL (13.5-17.5); IMMATURE GRANULOCYTES 1.1 % (0-5); LYMPHOCYTES 5.9 % (15-50); MCHC 33.3 g/dL (31.0-37.0); MEAN PLATELET VOLUME 10.3 fL (7.4-10.4); MONOCYTES 5.3 % (2-11); NEUTROPHILS 87.6 % (40-80); PLATELET COUNT 249 10x3/uL (130-400); RDW 14.8 % (11.5-14.5); WBC 17.1 10x3/uL (4.8-10.8)
[2018-03-05 05:32] LABS: CALC OSMOLALITY 268 mosm/kg (275-300); CALCIUM 7.7 mg/dL (8.5-10.1); CARBON DIOXIDE 23.7 mmol/L (21.0-32.0); CHLORIDE - SERUM 102 mmol/L (98-107); CREATININE - SERUM 0.8 mg/dL (0.6-1.3); GLUCOSE 137 mg/dL (74-106); POTASSIUM - SERUM 3.9 mmol/L (3.5-5.1); SODIUM 134 mmol/L (136-145); eGFR NON AFRICAN AMERICAN > 90 mL/min (90-120)
[2018-03-05 05:39] LABS: UREA NITROGEN 11 mg/dL (7-18)
[2018-03-06] VITALS (25 sets, daily range): BP systolic 88–146; BP diastolic 37–81
[2018-03-06 04:03] LABS: BASOPHILS 0.2 % (0-2); EOSINOPHILS 0.1 % (0-7); HEMATOCRIT 31.2 % (42.0-54.0); HEMOGLOBIN 10.2 g/dL (13.5-17.5); IMMATURE GRANULOCYTES 0.7 % (0-5); LYMPHOCYTES 7.1 % (15-50); MCH 29.7 pg (26.0-34.0); MCHC 32.7 g/dL (31.0-37.0); MCV 90.7 fL (80.0-100.0); MONOCYTES 5.1 % (2-11); NEUTROPHILS 86.8 % (40-80); PLATELET COUNT 218 10x3/uL (130-400); RBC 3.44 10x6/uL (4.20-6.10); RDW 14.7 % (11.5-14.5); WBC 19.1 10x3/uL (4.8-10.8)
[2018-03-06 04:14] LABS: CALC OSMOLALITY 275 mosm/kg (275-300); CALCIUM 7.7 mg/dL (8.5-10.1); CARBON DIOXIDE 28.2 mmol/L (21.0-32.0); CHLORIDE - SERUM 105 mmol/L (98-107); CREATININE - SERUM 0.7 mg/dL (0.6-1.3); GLUCOSE 141 mg/dL (74-106); POTASSIUM - SERUM 3.9 mmol/L (3.5-5.1); SODIUM 138 mmol/L (136-145); eGFR NON AFRICAN AMERICAN > 90 mL/min (90-120)
[2018-03-06 04:15] LABS: UREA NITROGEN 8 mg/dL (7-18)
[2018-03-06 21:16] LABS: APPEARANCE CLEAR (CLEAR); BILIRUBIN 1+ (NEGATIVE); COLOR DK YELLOW (YELLOW); GLUCOSE NEGATIVE (NEGATIVE); KETONE NEGATIVE (NEGATIVE); NITRITE NEGATIVE (NEGATIVE); PROTEIN NEGATIVE (NEGATIVE)
[2018-03-07] VITALS (25 sets, daily range): BP systolic 63–130; BP diastolic 38–74
[2018-03-07 04:40] LABS: BASOPHILS 0.1 % (0-2); EOSINOPHILS 0.1 % (0-7); HEMATOCRIT 30.9 % (42.0-54.0); IMMATURE GRANULOCYTES 0.7 % (0-5); LYMPHOCYTES 7.4 % (15-50); MCH 29.6 pg (26.0-34.0); MCHC 32.4 g/dL (31.0-37.0); MCV 91.4 fL (80.0-100.0); MEAN PLATELET VOLUME 10.2 fL (7.4-10.4); MONOCYTES 3.8 % (2-11); NEUTROPHILS 87.9 % (40-80); PLATELET COUNT 211 10x3/uL (130-400); RBC 3.38 10x6/uL (4.20-6.10); RDW 14.6 % (11.5-14.5); WBC 15.5 10x3/uL (4.8-10.8)
[2018-03-07 04:55] LABS: INR 1.39 (0.85-1.17); PROTIME 16.5 SECONDS (11.6-15.0)
[2018-03-07 04:59] LABS: CALC OSMOLALITY 275 mosm/kg (275-300); CALCIUM 7.4 mg/dL (8.5-10.1); CARBON DIOXIDE 28.4 mmol/L (21.0-32.0); CHLORIDE - SERUM 103 mmol/L (98-107); CREATINE KINASE 15 UL (21-232); GLUCOSE 136 mg/dL (74-106); POTASSIUM - SERUM 3.4 mmol/L (3.5-5.1); SODIUM 138 mmol/L (136-145); UREA NITROGEN 8 mg/dL (7-18)
[2018-03-07 05:11] LABS: CREATININE - SERUM 0.9 mg/dL (0.6-1.3); eGFR NON AFRICAN AMERICAN > 90 mL/min (90-120)
[2018-03-07 08:09] LABS: F. TULARENSIS - IGG Negative (()); F. TULARENSIS - IGM Negative (())
[2018-03-08] VITALS (24 sets, daily range): BP systolic 77–153; BP diastolic 39–82
[2018-03-08 03:46] LABS: BASOPHILS 0.1 % (0-2); EOSINOPHILS 0 % (0-7); HEMATOCRIT 28.1 % (42.0-54.0); HEMOGLOBIN 9.2 g/dL (13.5-17.5); IMMATURE GRANULOCYTES 0.4 % (0-5); LYMPHOCYTES 5.6 % (15-50); MCH 29.7 pg (26.0-34.0); MCHC 32.7 g/dL (31.0-37.0); MCV 90.6 fL (80.0-100.0); MEAN PLATELET VOLUME 9.9 fL (7.4-10.4); NEUTROPHILS 89.9 % (40-80); RDW 14.3 % (11.5-14.5); WBC 11.7 10x3/uL (4.8-10.8)
[2018-03-08 03:50] LABS: PLATELET COUNT 152 10x3/uL (130-400)
[2018-03-08 04:04] LABS: CALC OSMOLALITY 269 mosm/kg (275-300); CALCIUM 7.5 mg/dL (8.5-10.1); CHLORIDE - SERUM 104 mmol/L (98-107); CREATININE - SERUM 0.7 mg/dL (0.6-1.3); GLUCOSE 110 mg/dL (74-106); MAGNESIUM - SERUM 1.5 mg/dL (1.8-2.4); PHOSPHOROUS 4.4 mg/dL (2.5-4.9); POTASSIUM - SERUM 3.9 mmol/L (3.5-5.1); SODIUM 135 mmol/L (136-145); eGFR NON AFRICAN AMERICAN > 90 mL/min (90-120)
[2018-03-08 04:22] LABS: UREA NITROGEN 11 mg/dL (7-18)
[2018-03-09] VITALS (19 sets, daily range): BP systolic 71–127; BP diastolic 43–88
[2018-03-09 03:47] LABS: BASOPHILS 0.1 % (0-2); EOSINOPHILS 0.1 % (0-7); HEMOGLOBIN 7.8 g/dL (13.5-17.5); IMMATURE GRANULOCYTES 0.5 % (0-5); LYMPHOCYTES 8.3 % (15-50); MCH 29.3 pg (26.0-34.0); MCHC 32.5 g/dL (31.0-37.0); MCV 90.2 fL (80.0-100.0); MEAN PLATELET VOLUME 10.6 fL (7.4-10.4); MONOCYTES 5.1 % (2-11); NEUTROPHILS 85.9 % (40-80); PLATELET COUNT 138 10x3/uL (130-400); RBC 2.66 10x6/uL (4.20-6.10); RDW 14.5 % (11.5-14.5)
[2018-03-09 03:52] LABS: WBC 8.1 10x3/uL (4.8-10.8)
[2018-03-09 04:02] LABS: ALBUMIN 1.1 g/dL (3.4-5.0); ALKALINE PHOSPHATASE 145 U/L (46-116); ALT (SGPT) 57 U/L (10-68); BILIRUBIN - TOTAL 1.02 mg/dL (0.2-1.3); CALC OSMOLALITY 271 mosm/kg (275-300); CARBON DIOXIDE 25.1 mmol/L (21.0-32.0); CHLORIDE - SERUM 103 mmol/L (98-107); CREATININE - SERUM 0.8 mg/dL (0.6-1.3); GLUCOSE 122 mg/dL (74-106); POTASSIUM - SERUM 3.6 mmol/L (3.5-5.1); PROTEIN - SERUM 5.5 g/dL (6.4-8.2); SODIUM 136 mmol/L (136-145); UREA NITROGEN 9 mg/dL (7-18); eGFR NON AFRICAN AMERICAN > 90 mL/min (90-120)
[2018-03-09 15:15] LABS: HEMATOCRIT 25.2 % (42.0-54.0); HEMOGLOBIN 8.3 g/dL (13.5-17.5)
[2018-03-10] VITALS (25 sets, daily range): BP systolic 95–149; BP diastolic 62–102
[2018-03-10 04:19] LABS: BASOPHILS 0.2 % (0-2); EOSINOPHILS 0.1 % (0-7); IMMATURE GRANULOCYTES 0.6 % (0-5); LYMPHOCYTES 8.6 % (15-50); MCH 29.6 pg (26.0-34.0); MCHC 32.9 g/dL (31.0-37.0); MEAN PLATELET VOLUME 10.9 fL (7.4-10.4); MONOCYTES 6.6 % (2-11); NEUTROPHILS 83.9 % (40-80); RDW 14.9 % (11.5-14.5)
[2018-03-10 04:28] LABS: HEMATOCRIT 33.4 % (42.0-54.0); PLATELET COUNT 185 10x3/uL (130-400); RBC 3.71 10x6/uL (4.20-6.10); WBC 12.7 10x3/uL (4.8-10.8)
[2018-03-10 04:41] LABS: ALBUMIN 1.3 g/dL (3.4-5.0); ALKALINE PHOSPHATASE 158 U/L (46-116); ALT (SGPT) 57 U/L (10-68); BILIRUBIN - TOTAL 1.19 mg/dL (0.2-1.3); CALC OSMOLALITY 277 mosm/kg (275-300); CALCIUM 7.5 mg/dL (8.5-10.1); CARBON DIOXIDE 26.9 mmol/L (21.0-32.0); CHLORIDE - SERUM 104 mmol/L (98-107); CREATININE - SERUM 0.8 mg/dL (0.6-1.3); GLUCOSE 132 mg/dL (74-106); MAGNESIUM - SERUM 1.6 mg/dL (1.8-2.4); POTASSIUM - SERUM 3.8 mmol/L (3.5-5.1); PROTEIN - SERUM 6.4 g/dL (6.4-8.2); SODIUM 139 mmol/L (136-145); UREA NITROGEN 7 mg/dL (7-18); eGFR NON AFRICAN AMERICAN > 90 mL/min (90-120)
[2018-03-10 14:55] LABS: INR 1.39 (0.85-1.17); PROTIME 16.6 SECONDS (11.6-15.0)
[2018-03-10 15:58] LABS: T4 THYROXIN - FREE 1.3 ng/dL (0.76-1.46); THYROID STIMULATING HORMONE 0.57 uIU/mL (0.36-3.74)
[2018-03-10 19:01] LABS: APPEARANCE CLEAR (CLEAR); COLOR YELLOW (YELLOW); GLUCOSE NEGATIVE (NEGATIVE); NITRITE NEGATIVE (NEGATIVE); PROTEIN NEGATIVE (NEGATIVE)
[2018-03-10 19:02] LABS: BILIRUBIN 1+ (NEGATIVE); KETONE NEGATIVE (NEGATIVE)
[2018-03-10 19:03] LABS: BACTERIA FEW /hpf (NONE SEEN); RED CELLS - URINE 0-5 /hpf (0-5)
[2018-03-11] VITALS (44 sets, daily range): BP systolic 83–127; BP diastolic 46–84
[2018-03-11 07:17] LABS: BASOPHILS 0.2 % (0-2); EOSINOPHILS 0 % (0-7); HEMATOCRIT 31.6 % (42.0-54.0); HEMOGLOBIN 10.4 g/dL (13.5-17.5); IMMATURE GRANULOCYTES 0.9 % (0-5); LYMPHOCYTES 11.8 % (15-50); MCH 29.5 pg (26.0-34.0); MCHC 32.9 g/dL (31.0-37.0); MCV 89.5 fL (80.0-100.0); MEAN PLATELET VOLUME 9.9 fL (7.4-10.4); MONOCYTES 11.5 % (2-11); NEUTROPHILS 75.6 % (40-80); RBC 3.53 10x6/uL (4.20-6.10); RDW 14.9 % (11.5-14.5); WBC 11.9 10x3/uL (4.8-10.8)
[2018-03-11 07:19] LABS: PLATELET COUNT 134 10x3/uL (130-400)
[2018-03-11 07:26] LABS: INR 1.23 (0.85-1.17); PROTIME 15.1 SECONDS (11.6-15.0)
[2018-03-11 07:31] LABS: ALBUMIN 1.2 g/dL (3.4-5.0); ALKALINE PHOSPHATASE 127 U/L (46-116); ALT (SGPT) 51 U/L (10-68); BILIRUBIN - TOTAL 1.08 mg/dL (0.2-1.3); CALC OSMOLALITY 274 mosm/kg (275-300); CALCIUM 7.4 mg/dL (8.5-10.1); CARBON DIOXIDE 26.9 mmol/L (21.0-32.0); CHLORIDE - SERUM 103 mmol/L (98-107); CREATININE - SERUM 0.8 mg/dL (0.6-1.3); GLUCOSE 108 mg/dL (74-106); POTASSIUM - SERUM 3.6 mmol/L (3.5-5.1); PROTEIN - SERUM 6.3 g/dL (6.4-8.2); SODIUM 138 mmol/L (136-145); UREA NITROGEN 6 mg/dL (7-18); eGFR NON AFRICAN AMERICAN > 90 mL/min (90-120)
[2018-03-12] VITALS (73 sets, daily range): BP systolic 87–139; BP diastolic 26–73
[2018-03-12 04:08] LABS: BASOPHILS 0.2 % (0-2); EOSINOPHILS 0 % (0-7); HEMATOCRIT 28.4 % (42.0-54.0); HEMOGLOBIN 9.5 g/dL (13.5-17.5); IMMATURE GRANULOCYTES 1.6 % (0-5); LYMPHOCYTES 19.8 % (15-50); MCH 29.7 pg (26.0-34.0); MCHC 33.5 g/dL (31.0-37.0); MCV 88.8 fL (80.0-100.0); MONOCYTES 11.1 % (2-11); NEUTROPHILS 67.3 % (40-80); WBC 13.5 10x3/uL (4.8-10.8)
[2018-03-12 04:09] LABS: PLATELET COUNT 70 10x3/uL (130-400)
[2018-03-12 04:29] LABS: ALBUMIN 1.4 g/dL (3.4-5.0); ALKALINE PHOSPHATASE 93 U/L (46-116); BILIRUBIN - TOTAL 1.49 mg/dL (0.2-1.3); CHLORIDE - SERUM 102 mmol/L (98-107); GLUCOSE 105 mg/dL (74-106); MAGNESIUM - SERUM 2.2 mg/dL (1.8-2.4); PROTEIN - SERUM 4.8 g/dL (6.4-8.2); SODIUM 139 mmol/L (136-145); eGFR NON AFRICAN AMERICAN > 90 mL/min (90-120)
[2018-03-12 04:35] LABS: ALT (SGPT) 3093 U/L (10-68); CALC OSMOLALITY 278 mosm/kg (275-300); CARBON DIOXIDE 18.5 mmol/L (21.0-32.0); PHOSPHOROUS 5.4 mg/dL (2.5-4.9); POTASSIUM - SERUM 4.6 mmol/L (3.5-5.1); UREA NITROGEN 16 mg/dL (7-18)
[2018-03-12 05:08] LABS: PLATELET ESTIMATE DECREASED; PLATELET MORPHOLOGY NORMAL PLT MORPH
[2018-03-12 05:39] LABS: APTT 36.5 SECONDS (22.8-39.4)
[2018-03-12 05:43] LABS: INR 2.64 (0.85-1.17); PROTIME 27.5 SECONDS (11.6-15.0)
[2018-03-12 16:00] LABS: CALC OSMOLALITY 277 mosm/kg (275-300); CALCIUM 7.3 mg/dL (8.5-10.1); CARBON DIOXIDE 21.2 mmol/L (21.0-32.0); CHLORIDE - SERUM 99 mmol/L (98-107); CREATININE - SERUM 1.1 mg/dL (0.6-1.3); GLUCOSE 115 mg/dL (74-106); POTASSIUM - SERUM 4.2 mmol/L (3.5-5.1); SODIUM 137 mmol/L (136-145); eGFR NON AFRICAN AMERICAN 86 mL/min (90-120)
[2018-03-12 16:01] LABS: UREA NITROGEN 21 mg/dL (7-18)
[2018-03-12 16:03] LABS: INR 2.32 (0.85-1.17); PROTIME 24.9 SECONDS (11.6-15.0)
[2018-03-12 16:12] LABS: AEROBE ID Final report (())
[2018-03-12 16:12] LABS: AEROBE ID Final report (())
[2018-03-12 16:12] LABS: AEROBE ID Final report (())
[2018-03-13] VITALS (25 sets, daily range): BP systolic 88–125; BP diastolic 47–72
[2018-03-13 02:51] LABS: APPEARANCE TURBID (CLEAR); BILIRUBIN NEGATIVE (NEGATIVE); COLOR YELLOW (YELLOW); GLUCOSE NEGATIVE (NEGATIVE); KETONE SMALL mg/dL (NEGATIVE); NITRITE NEGATIVE (NEGATIVE); PROTEIN TRACE mg/dL (NEGATIVE); SPECIFIC GRAVITY 1.025 (1.005-1.020)
[2018-03-13 02:52] LABS: AMORPHOUS SEDIMENT >1+ /lpf (NONE SEEN); BACTERIA NONE SEEN /hpf (NONE SEEN); EPITHELIAL CELLS NSEEN /hpf (0-5); MUCUS <1+ /lpf (NONE SEEN); RED CELLS - URINE 0-5 /hpf (0-5); WHITE CELLS - URINE NSEEN /hpf (0-5)
[2018-03-13 05:38] LABS: BASOPHILS 0.1 % (0-2); EOSINOPHILS 0 % (0-7); HEMATOCRIT 23.6 % (42.0-54.0); HEMOGLOBIN 7.8 g/dL (13.5-17.5); IMMATURE GRANULOCYTES 0.9 % (0-5); LYMPHOCYTES 12.1 % (15-50); MCH 29.3 pg (26.0-34.0); MCHC 33.1 g/dL (31.0-37.0); MCV 88.7 fL (80.0-100.0); MEAN PLATELET VOLUME 12.5 fL (7.4-10.4); MONOCYTES 9.1 % (2-11); NEUTROPHILS 77.8 % (40-80); RBC 2.66 10x6/uL (4.20-6.10); RDW 14.7 % (11.5-14.5)
[2018-03-13 05:41] LABS: PLATELET COUNT 40 10x3/uL (130-400); WBC 7.6 10x3/uL (4.8-10.8)
[2018-03-13 05:47] LABS: APTT 40.3 SECONDS (22.8-39.4); INR 2.51 (0.85-1.17); PROTIME 26.4 SECONDS (11.6-15.0)
[2018-03-13 06:16] LABS: ALKALINE PHOSPHATASE 134 U/L (46-116); AMYLASE - SERUM 40 U/L (25-115); BILIRUBIN - TOTAL 2.07 mg/dL (0.2-1.3); CALC OSMOLALITY 278 mosm/kg (275-300); CALCIUM 7.3 mg/dL (8.5-10.1); CHLORIDE - SERUM 98 mmol/L (98-107); CHOL - HDL RATIO 4.8 ratio (2.3-4.9); CHOLESTEROL, TOTAL 72 mg/dL (0-200); GLUCOSE 132 mg/dL (74-106); HDL CHOLESTEROL 15 mg/dL (32-96); LDL CHOLESTEROL 42 mg/dL (0-100); LDL-HDL RATIO 2.8 ratio (1.5-3.5); LIPASE 57 U/L (73-393); POTASSIUM - SERUM 3.8 mmol/L (3.5-5.1); PROTEIN - SERUM 5.5 g/dL (6.4-8.2); SODIUM 137 mmol/L (136-145); TRIGLYCERIDE 77 mg/dL (30-200); UREA NITROGEN 22 mg/dL (7-18); eGFR NON AFRICAN AMERICAN > 90 mL/min (90-120)
[2018-03-13 06:17] LABS: ALBUMIN 1.8 g/dL (3.4-5.0); ALT (SGPT) 3333 U/L (10-68); CARBON DIOXIDE 27.3 mmol/L (21.0-32.0); LDH 1018 U/L (85-227); PHOSPHOROUS 3.4 mg/dL (2.5-4.9); PRE-ALBUMIN 9.6 mg/dL (18.0-35.7)
[2018-03-13 07:21] LABS: BILIRUBIN - DIRECT 1.34 mg/dL (0.00-0.30); BILIRUBIN - INDIRECT 0.73 mg/dL (0.00-1.00)
[2018-03-14] VITALS (25 sets, daily range): BP systolic 94–119; BP diastolic 45–68
[2018-03-14 06:10] LABS: BASOPHILS 0.4 % (0-2); EOSINOPHILS 0 % (0-7); HEMATOCRIT 22.6 % (42.0-54.0); HEMOGLOBIN 7.7 g/dL (13.5-17.5); IMMATURE GRANULOCYTES 2.2 % (0-5); LYMPHOCYTES 9.2 % (15-50); MCH 31.2 pg (26.0-34.0); MCHC 34.1 g/dL (31.0-37.0); MEAN PLATELET VOLUME 12.6 fL (7.4-10.4); MONOCYTES 8.6 % (2-11); NEUTROPHILS 79.6 % (40-80); RBC 2.47 10x6/uL (4.20-6.10); RDW 14.7 % (11.5-14.5)
[2018-03-14 06:21] LABS: MCV 91.5 fL (80.0-100.0); PLATELET COUNT 57 10x3/uL (130-400); WBC 13.2 10x3/uL (4.8-10.8)
[2018-03-14 06:32] LABS: APTT 34.1 SECONDS (22.8-39.4); INR 2.56 (0.85-1.17); PROTIME 26.8 SECONDS (11.6-15.0)
[2018-03-14 06:33] LABS: D-DIMER-QUANTITATIVE 3.98 ug/mLFEU (0.20-0.54)
[2018-03-14 06:45] LABS: ALBUMIN 1.7 g/dL (3.4-5.0); ALKALINE PHOSPHATASE 158 U/L (46-116); BILIRUBIN - TOTAL 1.82 mg/dL (0.2-1.3); CALC OSMOLALITY 271 mosm/kg (275-300); CALCIUM 7.1 mg/dL (8.5-10.1); CARBON DIOXIDE 31.7 mmol/L (21.0-32.0); CHLORIDE - SERUM 98 mmol/L (98-107); CREATININE - SERUM 0.9 mg/dL (0.6-1.3); GLUCOSE 107 mg/dL (74-106); MAGNESIUM - SERUM 1.9 mg/dL (1.8-2.4); PHOSPHOROUS 3.1 mg/dL (2.5-4.9); POTASSIUM - SERUM 3.7 mmol/L (3.5-5.1); PROTEIN - SERUM 5.6 g/dL (6.4-8.2); SODIUM 135 mmol/L (136-145); UREA NITROGEN 18 mg/dL (7-18); eGFR NON AFRICAN AMERICAN > 90 mL/min (90-120)
[2018-03-14 06:47] LABS: ALT (SGPT) 2331 U/L (10-68)
[2018-03-15] VITALS (23 sets, daily range): BP systolic 97–123; BP diastolic 57–81
[2018-03-15 06:11] LABS: BASOPHILS 0.5 % (0-2); EOSINOPHILS 0 % (0-7); HEMATOCRIT 25.8 % (42.0-54.0); HEMOGLOBIN 8.3 g/dL (13.5-17.5); LYMPHOCYTES 10.3 % (15-50); MCH 29.2 pg (26.0-34.0); MCHC 32.2 g/dL (31.0-37.0); MCV 90.8 fL (80.0-100.0); MEAN PLATELET VOLUME 11.3 fL (7.4-10.4); MONOCYTES 9.6 % (2-11); NEUTROPHILS 74.6 % (40-80); RBC 2.84 10x6/uL (4.20-6.10); RDW 15.9 % (11.5-14.5)
[2018-03-15 06:12] LABS: PLATELET COUNT 70 10x3/uL (130-400); WBC 17.1 10x3/uL (4.8-10.8)
[2018-03-15 06:31] LABS: ALBUMIN 1.8 g/dL (3.4-5.0); ALKALINE PHOSPHATASE 165 U/L (46-116); BILIRUBIN - TOTAL 1.96 mg/dL (0.2-1.3); CALC OSMOLALITY 271 mosm/kg (275-300); CALCIUM 7.1 mg/dL (8.5-10.1); CARBON DIOXIDE 36.5 mmol/L (21.0-32.0); CHLORIDE - SERUM 99 mmol/L (98-107); CREATINE KINASE 67 UL (21-232); CREATININE - SERUM 0.9 mg/dL (0.6-1.3); GLUCOSE 112 mg/dL (74-106); POTASSIUM - SERUM 3.7 mmol/L (3.5-5.1); PROTEIN - SERUM 5.8 g/dL (6.4-8.2); SODIUM 135 mmol/L (136-145); UREA NITROGEN 15 mg/dL (7-18); eGFR NON AFRICAN AMERICAN > 90 mL/min (90-120)
[2018-03-15 06:33] LABS: ALT (SGPT) 1476 U/L (10-68)
[2018-03-15 06:36] LABS: INR 2.2 (0.85-1.17); PROTIME 23.8 SECONDS (11.6-15.0)
[2018-03-16] VITALS (23 sets, daily range): BP systolic 104–124; BP diastolic 64–99
[2018-03-16 05:52] LABS: BASOPHILS 0.6 % (0-2); EOSINOPHILS 0.4 % (0-7); HEMATOCRIT 28.3 % (42.0-54.0); HEMOGLOBIN 8.9 g/dL (13.5-17.5); IMMATURE GRANULOCYTES 6.3 % (0-5); LYMPHOCYTES 12.3 % (15-50); MCH 29.5 pg (26.0-34.0); MCHC 31.4 g/dL (31.0-37.0); MEAN PLATELET VOLUME 11.5 fL (7.4-10.4); MONOCYTES 9.8 % (2-11); NEUTROPHILS 70.6 % (40-80); RBC 3.02 10x6/uL (4.20-6.10); RDW 16.1 % (11.5-14.5); WBC 16.7 10x3/uL (4.8-10.8)
[2018-03-16 05:57] LABS: MCV 93.7 fL (80.0-100.0); PLATELET COUNT 92 10x3/uL (130-400)
[2018-03-16 06:21] LABS: ALBUMIN 1.8 g/dL (3.4-5.0); ALKALINE PHOSPHATASE 160 U/L (46-116); BILIRUBIN - TOTAL 2.09 mg/dL (0.2-1.3); CALCIUM 7.2 mg/dL (8.5-10.1); CARBON DIOXIDE 33.6 mmol/L (21.0-32.0); CHLORIDE - SERUM 100 mmol/L (98-107); CREATININE - SERUM 0.8 mg/dL (0.6-1.3); GLUCOSE 93 mg/dL (74-106); POTASSIUM - SERUM 4.2 mmol/L (3.5-5.1); PROTEIN - SERUM 6.1 g/dL (6.4-8.2); SODIUM 138 mmol/L (136-145); eGFR NON AFRICAN AMERICAN > 90 mL/min (90-120)
[2018-03-16 06:24] LABS: ALT (SGPT) 1115 U/L (10-68); CALC OSMOLALITY 274 mosm/kg (275-300); UREA NITROGEN 9 mg/dL (7-18)
[2018-03-16 19:12] LABS: AEROBE ID Final report (())
[2018-03-17] VITALS (22 sets, daily range): BP systolic 101–131; BP diastolic 66–85
[2018-03-17 06:14] LABS: BASOPHILS 0.3 % (0-2); EOSINOPHILS 0.9 % (0-7); HEMATOCRIT 29.6 % (42.0-54.0); HEMOGLOBIN 9.2 g/dL (13.5-17.5); IMMATURE GRANULOCYTES 5.8 % (0-5); LYMPHOCYTES 13.8 % (15-50); MCH 29.7 pg (26.0-34.0); MCHC 31.1 g/dL (31.0-37.0); MCV 95.5 fL (80.0-100.0); MEAN PLATELET VOLUME 10.9 fL (7.4-10.4); MONOCYTES 8.6 % (2-11); NEUTROPHILS 70.6 % (40-80); PLATELET COUNT 100 10x3/uL (130-400); RDW 17.1 % (11.5-14.5); WBC 14.8 10x3/uL (4.8-10.8)
[2018-03-17 06:22] LABS: PROTIME 19.6 SECONDS (11.6-15.0)
[2018-03-17 06:25] LABS: ALBUMIN 1.7 g/dL (3.4-5.0); ALKALINE PHOSPHATASE 160 U/L (46-116); BILIRUBIN - TOTAL 1.77 mg/dL (0.2-1.3); CALC OSMOLALITY 271 mosm/kg (275-300); CALCIUM 7.4 mg/dL (8.5-10.1); CARBON DIOXIDE 32.2 mmol/L (21.0-32.0); CHLORIDE - SERUM 102 mmol/L (98-107); CREATININE - SERUM 0.8 mg/dL (0.6-1.3); GLUCOSE 91 mg/dL (74-106); POTASSIUM - SERUM 4.8 mmol/L (3.5-5.1); PROTEIN - SERUM 5.9 g/dL (6.4-8.2); SODIUM 137 mmol/L (136-145); UREA NITROGEN 7 mg/dL (7-18); eGFR NON AFRICAN AMERICAN > 90 mL/min (90-120)
[2018-03-17 06:28] LABS: ALT (SGPT) 798 U/L (10-68)
[2018-03-17 06:31] LABS: INR 1.72 (0.85-1.17)
[2018-03-18] VITALS (23 sets, daily range): BP systolic 110–134; BP diastolic 74–101
[2018-03-18 06:24] LABS: BASOPHILS 0.3 % (0-2); HEMATOCRIT 30.8 % (42.0-54.0); HEMOGLOBIN 9.8 g/dL (13.5-17.5); LYMPHOCYTES 16.5 % (15-50); MCH 30.2 pg (26.0-34.0); MCHC 31.8 g/dL (31.0-37.0); MCV 95.1 fL (80.0-100.0); MEAN PLATELET VOLUME 11.1 fL (7.4-10.4); NEUTROPHILS 70.2 % (40-80); PLATELET COUNT 113 10x3/uL (130-400); RBC 3.24 10x6/uL (4.20-6.10); RDW 17.6 % (11.5-14.5); WBC 12.6 10x3/uL (4.8-10.8)
[2018-03-18 06:36] LABS: INR 1.74 (0.85-1.17); PROTIME 19.8 SECONDS (11.6-15.0)
[2018-03-18 06:50] LABS: ALBUMIN 1.6 g/dL (3.4-5.0); ALKALINE PHOSPHATASE 151 U/L (46-116); ALT (SGPT) 633 U/L (10-68); BILIRUBIN - TOTAL 1.61 mg/dL (0.2-1.3); CALCIUM 7.5 mg/dL (8.5-10.1); CARBON DIOXIDE 29.5 mmol/L (21.0-32.0); CHLORIDE - SERUM 104 mmol/L (98-107); CREATININE - SERUM 0.8 mg/dL (0.6-1.3); GLUCOSE 96 mg/dL (74-106); POTASSIUM - SERUM 4.7 mmol/L (3.5-5.1); PROTEIN - SERUM 6.2 g/dL (6.4-8.2); SODIUM 136 mmol/L (136-145); eGFR NON AFRICAN AMERICAN > 90 mL/min (90-120)
[2018-03-18 06:52] LABS: CALC OSMOLALITY 268 mosm/kg (275-300); UREA NITROGEN 5 mg/dL (7-18)
[2018-03-18 10:23] LABS: FACTOR VIII - APTT 40.2 sec (22.9-30.2); FACTOR VIII - APTT 1:1 NP 27.3 sec (22.9-30.2); FACTOR VIII ACTIVITY 138 % (57-163)
[2018-03-19] VITALS (25 sets, daily range): BP systolic 116–168; BP diastolic 55–95
[2018-03-19 05:04] LABS: INR 1.66 (0.85-1.17); PROTIME 19.1 SECONDS (11.6-15.0)
[2018-03-20] VITALS (25 sets, daily range): BP systolic 84–136; BP diastolic 62–99
[2018-03-20 06:36] LABS: CALC OSMOLALITY 274 mosm/kg (275-300); CALCIUM 7.6 mg/dL (8.5-10.1); CARBON DIOXIDE 23.8 mmol/L (21.0-32.0); CHLORIDE - SERUM 105 mmol/L (98-107); CREATININE - SERUM 0.9 mg/dL (0.6-1.3); GLUCOSE 102 mg/dL (74-106); INR 1.65 (0.85-1.17); MAGNESIUM - SERUM 1.6 mg/dL (1.8-2.4); PHOSPHOROUS 4.4 mg/dL (2.5-4.9); POTASSIUM - SERUM 4.1 mmol/L (3.5-5.1); SODIUM 139 mmol/L (136-145); UREA NITROGEN 5 mg/dL (7-18); eGFR NON AFRICAN AMERICAN > 90 mL/min (90-120)
[2018-03-21] VITALS (15 sets, daily range): BP systolic 101–122; BP diastolic 65–91
[2018-03-21 05:18] LABS: BASOPHILS 0.2 % (0-2); EOSINOPHILS 1.4 % (0-7); HEMATOCRIT 31.4 % (42.0-54.0); HEMOGLOBIN 9.9 g/dL (13.5-17.5); IMMATURE GRANULOCYTES 0.4 % (0-5); MCH 29.7 pg (26.0-34.0); MCHC 31.5 g/dL (31.0-37.0); MCV 94.3 fL (80.0-100.0); MEAN PLATELET VOLUME 11.3 fL (7.4-10.4); MONOCYTES 8.9 % (2-11); NEUTROPHILS 69.1 % (40-80); PLATELET COUNT 118 10x3/uL (130-400); RBC 3.33 10x6/uL (4.20-6.10); RDW 16.8 % (11.5-14.5); WBC 11.2 10x3/uL (4.8-10.8)
[2018-03-21 05:33] LABS: ALBUMIN 1.8 g/dL (3.4-5.0); ALKALINE PHOSPHATASE 145 U/L (46-116); ALT (SGPT) 358 U/L (10-68); BILIRUBIN - TOTAL 1.14 mg/dL (0.2-1.3); CALC OSMOLALITY 268 mosm/kg (275-300); CALCIUM 7.7 mg/dL (8.5-10.1); CARBON DIOXIDE 25.3 mmol/L (21.0-32.0); CHLORIDE - SERUM 105 mmol/L (98-107); CREATININE - SERUM 0.8 mg/dL (0.6-1.3); GLUCOSE 104 mg/dL (74-106); POTASSIUM - SERUM 4.2 mmol/L (3.5-5.1); PROTEIN - SERUM 6.8 g/dL (6.4-8.2); SODIUM 136 mmol/L (136-145); UREA NITROGEN 5 mg/dL (7-18); eGFR NON AFRICAN AMERICAN > 90 mL/min (90-120)
[2018-03-21 05:34] LABS: INR 1.55 (0.85-1.17); PROTIME 18.1 SECONDS (11.6-15.0)
[2018-03-21 07:06] LABS: MAGNESIUM - SERUM 1.8 mg/dL (1.8-2.4); PHOSPHOROUS 4.2 mg/dL (2.5-4.9)
[2018-03-22] VITALS: BP 114/62
[2018-03-22 04:00] VITALS: BP 105/58
[2018-03-22 04:20] LABS: BASOPHILS 0.2 % (0-2); HEMATOCRIT 29.6 % (42.0-54.0); HEMOGLOBIN 9.2 g/dL (13.5-17.5); IMMATURE GRANULOCYTES 0.4 % (0-5); LYMPHOCYTES 27.5 % (15-50); MCH 29.1 pg (26.0-34.0); MCHC 31.1 g/dL (31.0-37.0); MCV 93.7 fL (80.0-100.0); MEAN PLATELET VOLUME 11.3 fL (7.4-10.4); MONOCYTES 10.3 % (2-11); NEUTROPHILS 60.6 % (40-80); PLATELET COUNT 110 10x3/uL (130-400); RBC 3.16 10x6/uL (4.20-6.10); RDW 16.4 % (11.5-14.5)
[2018-03-22 04:31] LABS: WBC 8.1 10x3/uL (4.8-10.8)
[2018-03-22 04:38] LABS: CALC OSMOLALITY 279 mosm/kg (275-300); CALCIUM 7.6 mg/dL (8.5-10.1); CARBON DIOXIDE 25.5 mmol/L (21.0-32.0); CHLORIDE - SERUM 107 mmol/L (98-107); GLUCOSE 111 mg/dL (74-106); POTASSIUM - SERUM 3.9 mmol/L (3.5-5.1); SODIUM 141 mmol/L (136-145); eGFR NON AFRICAN AMERICAN > 90 mL/min (90-120)
[2018-03-22 04:50] LABS: UREA NITROGEN 8 mg/dL (7-18)
[2018-03-22 08:21] VITALS: BP 109/59
[2018-03-22 11:23] VITALS: BP 114/62
[2018-03-22 15:39] VITALS: BP 112/70
[2018-03-22 23:42] VITALS: BP 113/69
[2018-03-23 01:57] VITALS: BP 101/70
[2018-03-23 06:34] VITALS: BP 112/60
[2018-03-23 06:41] LABS: INR 1.39 (0.85-1.17); PROTIME 16.5 SECONDS (11.6-15.0)
[2018-03-23 06:54] LABS: BASOPHILS 0.3 % (0-2); EOSINOPHILS 1.1 % (0-7); HEMATOCRIT 28.8 % (42.0-54.0); HEMOGLOBIN 8.8 g/dL (13.5-17.5); IMMATURE GRANULOCYTES 0.3 % (0-5); LYMPHOCYTES 28.4 % (15-50); MCH 28.7 pg (26.0-34.0); MCHC 30.6 g/dL (31.0-37.0); MCV 93.8 fL (80.0-100.0); MEAN PLATELET VOLUME 12.1 fL (7.4-10.4); MONOCYTES 11.4 % (2-11); NEUTROPHILS 58.5 % (40-80); RBC 3.07 10x6/uL (4.20-6.10); RDW 16.6 % (11.5-14.5)
[2018-03-23 06:55] LABS: PLATELET COUNT 81 10x3/uL (130-400)
[2018-03-23 07:01] LABS: ALBUMIN 1.8 g/dL (3.4-5.0); ALKALINE PHOSPHATASE 139 U/L (46-116); BILIRUBIN - TOTAL 0.86 mg/dL (0.2-1.3); CALC OSMOLALITY 276 mosm/kg (275-300); CALCIUM 7.7 mg/dL (8.5-10.1); CARBON DIOXIDE 24.7 mmol/L (21.0-32.0); CHLORIDE - SERUM 107 mmol/L (98-107); CREATININE - SERUM 0.8 mg/dL (0.6-1.3); GLUCOSE 91 mg/dL (74-106); POTASSIUM - SERUM 3.8 mmol/L (3.5-5.1); PROTEIN - SERUM 6.6 g/dL (6.4-8.2); SODIUM 139 mmol/L (136-145); UREA NITROGEN 9 mg/dL (7-18); eGFR NON AFRICAN AMERICAN > 90 mL/min (90-120)
[2018-03-23 07:02] LABS: ALT (SGPT) 257 U/L (10-68)
[2018-03-23 07:08] LABS: PLATELET ESTIMATE NORMAL
[2018-03-23 11:26] VITALS: BP 110/71
[2018-03-23 15:47] VITALS: BP 95/68
[2018-03-23 22:05] VITALS: BP 105/62
[2018-03-24 02:00] VITALS: BP 102/66
[2018-03-24 04:43] LABS: INR 1.49 (0.85-1.17); PROTIME 17.5 SECONDS (11.6-15.0)
[2018-03-24 06:16] VITALS: BP 114/75
[2018-03-24 08:39] VITALS: BP 113/75
[2018-03-24 10:47] VITALS: BP 119/71
[2018-03-24 15:37] VITALS: BP 109/66
[2018-03-24 21:18] VITALS: BP 102/69
[2018-03-25 05:42] VITALS: BP 99/54
[2018-03-25 05:52] LABS: BASOPHILS 0.3 % (0-2); EOSINOPHILS 1.4 % (0-7); HEMATOCRIT 29.2 % (42.0-54.0); IMMATURE GRANULOCYTES 0.2 % (0-5); LYMPHOCYTES 23.3 % (15-50); MCH 28.8 pg (26.0-34.0); MCHC 30.8 g/dL (31.0-37.0); MCV 93.3 fL (80.0-100.0); MEAN PLATELET VOLUME 10.7 fL (7.4-10.4); NEUTROPHILS 60.8 % (40-80); RBC 3.13 10x6/uL (4.20-6.10); RDW 16.3 % (11.5-14.5); WBC 6.5 10x3/uL (4.8-10.8)
[2018-03-25 05:54] LABS: ALBUMIN 1.8 g/dL (3.4-5.0); ALKALINE PHOSPHATASE 144 U/L (46-116); ALT (SGPT) 202 U/L (10-68); BILIRUBIN - TOTAL 0.74 mg/dL (0.2-1.3); CALC OSMOLALITY 276 mosm/kg (275-300); CALCIUM 7.6 mg/dL (8.5-10.1); CARBON DIOXIDE 25.3 mmol/L (21.0-32.0); CHLORIDE - SERUM 110 mmol/L (98-107); CREATININE - SERUM 0.9 mg/dL (0.6-1.3); GLUCOSE 107 mg/dL (74-106); POTASSIUM - SERUM 3.9 mmol/L (3.5-5.1); PROTEIN - SERUM 6.5 g/dL (6.4-8.2); SODIUM 139 mmol/L (136-145); UREA NITROGEN 9 mg/dL (7-18); eGFR NON AFRICAN AMERICAN > 90 mL/min (90-120)
[2018-03-25 06:00] LABS: PLATELET COUNT 121 10x3/uL (130-400)
[2018-03-25 08:19] VITALS: BP 101/58
[2018-03-25 15:41] VITALS: BP 114/72
[2018-03-25 20:00] VITALS: BP 114/72
[2018-03-26 04:59] VITALS: BP 108/66
[2018-03-26 08:00] VITALS: BP 122/77
[2018-03-26 11:37] VITALS: BP 118/66
[2018-03-26 15:32] VITALS: BP 120/64
[2018-03-26 21:10] VITALS: BP 120/63
[2018-03-27 04:30] VITALS: BP 96/64
[2018-03-27 05:54] LABS: BASOPHILS 0.5 % (0-2); HEMATOCRIT 27.7 % (42.0-54.0); HEMOGLOBIN 8.6 g/dL (13.5-17.5); IMMATURE GRANULOCYTES 0.2 % (0-5); LYMPHOCYTES 23.6 % (15-50); MCH 28.8 pg (26.0-34.0); MCV 92.6 fL (80.0-100.0); MEAN PLATELET VOLUME 10.6 fL (7.4-10.4); MONOCYTES 14.4 % (2-11); NEUTROPHILS 60.3 % (40-80); PLATELET COUNT 113 10x3/uL (130-400); RBC 2.99 10x6/uL (4.20-6.10); RDW 16.1 % (11.5-14.5); WBC 5.9 10x3/uL (4.8-10.8)
[2018-03-27 06:09] LABS: ALBUMIN 1.8 g/dL (3.4-5.0); ALKALINE PHOSPHATASE 141 U/L (46-116); ALT (SGPT) 152 U/L (10-68); BILIRUBIN - TOTAL 0.79 mg/dL (0.2-1.3); CALC OSMOLALITY 276 mosm/kg (275-300); CALCIUM 7.4 mg/dL (8.5-10.1); CARBON DIOXIDE 23.9 mmol/L (21.0-32.0); CHLORIDE - SERUM 109 mmol/L (98-107); CREATININE - SERUM 0.7 mg/dL (0.6-1.3); GLUCOSE 99 mg/dL (74-106); POTASSIUM - SERUM 3.7 mmol/L (3.5-5.1); PROTEIN - SERUM 6.4 g/dL (6.4-8.2); SODIUM 140 mmol/L (136-145); UREA NITROGEN 6 mg/dL (7-18); eGFR NON AFRICAN AMERICAN > 90 mL/min (90-120)
[2018-03-27 15:35] VITALS: BP 108/63
[2018-03-27 20:00] VITALS: BP 121/66
[2018-03-27 23:54] VITALS: BP 118/64
[2018-03-28 04:00] VITALS: BP 113/74
[2018-03-28 08:32] VITALS: BP 116/75
[2018-03-28 10:55] VITALS: BP 123/78
[2018-03-28 15:20] VITALS: BP 106/67
[2018-03-28 21:24] VITALS: BP 128/77
[2018-03-29] VITALS: BP 112/69
[2018-03-29 04:44] VITALS: BP 115/65
[2018-03-29 08:23] VITALS: BP 120/74
[2018-03-29 12:00] VITALS: BP 106/74
[2018-03-29] MEDS ORDERED: ZYVOX600 MG PO (14:59)
[2018-03-29] MEDS ORDERED: XOPENEX 0.0.63 MG/3 INH (15:04)
[2018-03-29] MEDS ORDERED: LOPRESSOR25 MG PO (15:04)
[2018-03-29] MEDS ORDERED: COLACE100 MG PO (15:04)
[2018-03-29] MEDS ORDERED: PROTONIX40 MG PO (15:04)
== END 2018-03-29 21:49 | disposition home or self-care (01) | DRG 853 ==
LOC: D.ER 09:36 → D.EDHOLD 17:31 → D.M2 17:31 → D.CVICU 17:31 → D.ICU 17:31 → D.CVICU 03-11 12:10 → D.ICU 03-16 → D.M2 03-21 15:36
PROVIDERS: Family Medicine; Internal Medicine Cardiovascular Disease; Internal Medicine Gastroenterology; Internal Medicine Hematology & Oncology; Internal Medicine Medical Oncology; Internal Medicine Pulmonary Disease; Student in an Organized Health Care Education/Training Program; Thoracic Surgery (Cardiothoracic Vascular Surgery)
PROC: 05HY33Z Insertion of Infusion Device into Upper Vein, Percutaneous Approach (ICD-10-PCS; principal; 2018-03-07)
PROC: 05HY33Z Insertion of Infusion Device into Upper Vein, Percutaneous Approach (ICD-10-PCS; 2018-03-07)
PROC: 02BJ0ZZ Excision of Tricuspid Valve, Open Approach (ICD-10-PCS; 2018-03-11)
PROC: B24BZZ4 Ultrasonography of Heart with Aorta, Transesophageal (ICD-10-PCS; 2018-03-11)
PROC: 5A1221Z Performance of Cardiac Output, Continuous (ICD-10-PCS; 2018-03-11)
PROC: 05HY33Z Insertion of Infusion Device into Upper Vein, Percutaneous Approach (ICD-10-PCS; 2018-03-14)
DX: A41.9 Sepsis, unspecified organism (principal); J18.9 Pneumonia, unspecified organism; I26.90 Septic pulmonary embolism without acute cor pulmonale; J96.01 Acute respiratory failure with hypoxia; I33.0 Acute and subacute infective endocarditis; K72.00 Acute and subacute hepatic failure without coma; E87.1 Hypo-osmolality and hyponatremia; E46 Unspecified protein-calorie malnutrition; F11.23 Opioid dependence with withdrawal; E87.2 Acidosis; E87.3 Alkalosis; J98.11 Atelectasis; R00.0 Tachycardia, unspecified; R16.2 Hepatomegaly with splenomegaly, not elsewhere classified; E87.6 Hypokalemia; E80.6 Other disorders of bilirubin metabolism; R94.5 Abnormal results of liver function studies; I07.9 Rheumatic tricuspid valve disease, unspecified; B95.62 Methicillin resistant Staphylococcus aureus infection as the cause of diseases classified elsewhere; F17.200 Nicotine dependence, unspecified, uncomplicated; F15.90 Other stimulant use, unspecified, uncomplicated; D69.59 Other secondary thrombocytopenia

== ENCOUNTER → 2018-04-12 14:01 | Outpatient (CLI) | payer MEDICAID ==
[2018-02-25 22:09] VITALS: BMI 22.2
[~2018-04-12 14:01] MED LIST: COLACE100 MG PO; LOPRESSOR25 MG PO; PROTONIX40 MG PO; XOPENEX 0.0.63 MG/3 INH; ZYVOX600 MG PO
[2018-04-12 18:37] LABS: BASOPHILS 0.1 % (0-2); EOSINOPHILS 1.3 % (0-7); HEMATOCRIT 29.5 % (42.0-54.0); HEMOGLOBIN 8.7 g/dL (13.5-17.5); IMMATURE GRANULOCYTES 0.3 % (0-5); LYMPHOCYTES 25.1 % (15-50); MCH 27.5 pg (26.0-34.0); MCHC 29.5 g/dL (31.0-37.0); MCV 93.4 fL (80.0-100.0); MEAN PLATELET VOLUME 11.4 fL (7.4-10.4); MONOCYTES 12.7 % (2-11); NEUTROPHILS 60.5 % (40-80); PLATELET COUNT 109 10x3/uL (130-400); RBC 3.16 10x6/uL (4.20-6.10); RDW 16.3 % (11.5-14.5); WBC 7.1 10x3/uL (4.8-10.8)
== END | disposition home or self-care (01) ==
LOC: D.LABREF 14:01
PROVIDERS: Student in an Organized Health Care Education/Training Program
DX: I38 Endocarditis, valve unspecified (principal)

== ENCOUNTER → 2018-04-19 15:42 | Outpatient (CLI) | payer MEDICAID ==
[2018-02-25 22:09] VITALS: BMI 22.2
[2018-04-19 15:59] LABS: HEMATOCRIT 30.6 % (42.0-54.0); HEMOGLOBIN 9.4 g/dL (13.5-17.5); MCH 28.8 pg (26.0-34.0); MCHC 30.7 g/dL (31.0-37.0); MCV 93.9 fL (80.0-100.0); RBC 3.26 10x6/uL (4.20-6.10); RDW 20.8 % (11.5-14.5); WBC 7.6 10x3/uL (4.8-10.8)
[2018-04-19 16:00] LABS: BASOPHILS 0.3 % (0-2); EOSINOPHILS 1.3 % (0-7); IMMATURE GRANULOCYTES 0.3 % (0-5); LYMPHOCYTES 30.8 % (15-50); MEAN PLATELET VOLUME 11.3 fL (7.4-10.4); MONOCYTES 16.3 % (2-11)
[2018-04-19 16:09] LABS: PLATELET COUNT 154 10x3/uL (130-400)
== END | disposition home or self-care (01) ==
LOC: D.LABREF 15:42
PROVIDERS: Student in an Organized Health Care Education/Training Program
DX: Z51.81 Encounter for therapeutic drug level monitoring (principal); Z79.2 Long term (current) use of antibiotics

== ENCOUNTER → 2018-04-28 13:49 | Outpatient (CLI) | payer MEDICAID ==
[2018-02-25 22:09] VITALS: BMI 22.2
[2018-04-28 14:38] LABS: BASOPHILS 0.4 % (0-2); HEMATOCRIT 36.2 % (42.0-54.0); HEMOGLOBIN 11.2 g/dL (13.5-17.5); IMMATURE GRANULOCYTES 0.1 % (0-5); LYMPHOCYTES 32.1 % (15-50); MCH 29.1 pg (26.0-34.0); MCHC 30.9 g/dL (31.0-37.0); MEAN PLATELET VOLUME 9.8 fL (7.4-10.4); MONOCYTES 12.4 % (2-11); RBC 3.85 10x6/uL (4.20-6.10); RDW 19.6 % (11.5-14.5); WBC 8.1 10x3/uL (4.8-10.8)
[2018-04-28 14:43] LABS: PLATELET COUNT 220 10x3/uL (130-400)
== END | disposition home or self-care (01) ==
LOC: D.LAB 13:49
PROVIDERS: Student in an Organized Health Care Education/Training Program
DX: A49.02 Methicillin resistant Staphylococcus aureus infection, unspecified site (principal)

== ENCOUNTER → 2018-10-05 10:29 | Outpatient (CLI) | payer MEDICAID | END | disposition home or self-care (01) | LOC: D.US 10:29 | DX: B18.2 Chronic viral hepatitis C (principal) ==

== ENCOUNTER → 2019-01-11 14:47 | Outpatient (CLI) | payer MEDICAID ==
[2018-02-25 22:09] VITALS: BMI 22.2
[2019-01-11 15:45] LABS: BASOPHILS 0.3 % (0-2); EOSINOPHILS 1.9 % (0-7); HEMATOCRIT 45.2 % (42.0-54.0); IMMATURE GRANULOCYTES 0.2 % (0-5); LYMPHOCYTES 39.8 % (15-50); MCH 31.4 pg (26.0-34.0); MCHC 35.4 g/dL (31.0-37.0); MCV 88.8 fL (80.0-100.0); MEAN PLATELET VOLUME 11.1 fL (7.4-10.4); MONOCYTES 7.3 % (2-11); NEUTROPHILS 50.5 % (40-80); RBC 5.09 10x6/uL (4.20-6.10); RDW 13.7 % (11.5-14.5); WBC 6.2 10x3/uL (4.8-10.8)
[2019-01-11 15:51] LABS: ALBUMIN 4.1 g/dL (3.4-5.0); ALKALINE PHOSPHATASE 150 U/L (46-116); ALT (SGPT) 18 U/L (10-68); BILIRUBIN - TOTAL 1.52 mg/dL (0.2-1.3); CALC OSMOLALITY 276 mosm/kg (275-300); CALCIUM 9.1 mg/dL (8.5-10.1); CARBON DIOXIDE 30.1 mmol/L (21.0-32.0); CHLORIDE - SERUM 103 mmol/L (98-107); CREATININE - SERUM 0.9 mg/dL (0.6-1.3); GLUCOSE 73 mg/dL (74-106); POTASSIUM - SERUM 4.6 mmol/L (3.5-5.1); PROTEIN - SERUM 8.7 g/dL (6.4-8.2); SODIUM 140 mmol/L (136-145); UREA NITROGEN 11 mg/dL (7-18); eGFR NON AFRICAN AMERICAN > 90 mL/min (90-120)
[2019-01-11 15:52] LABS: PLATELET COUNT 106 10x3/uL (130-400)
[2019-01-13 14:09] LABS: HCVGENO - HEP C QUANT HCV Not Detected IU/mL (())
== END | disposition home or self-care (01) ==
LOC: D.LAB 14:47
DX: B18.2 Chronic viral hepatitis C (principal); E88.89 Other specified metabolic disorders; Z03.89 Encounter for observation for other suspected diseases and conditions ruled out; K74.0 Hepatic fibrosis